=== PATIENT | male | born 1980 | race Caucasian/White ===

== ENCOUNTER 2021-10-12 05:23 | Inpatient (IN) | payer MEDICARE, MEDICAID ==
[~2021-10-12] VITALS: Ht 188 cm; Wt 109.6 kg
[~2021-10-12 05:23] MED LIST: NORPTMEDS CO; TRAZ100T3
[2021-10-12] MEDS ORDERED: DexAMETHasone SOD PHOS 10MG/1ML VIAL INJ IV ONE (05:45)
[2021-10-12] MEDS ORDERED: ACETAMINOPHEN 500 MG TAB PO ONE (05:45)
[2021-10-12 06:42] LABS: Basophils # (auto) 0 10 ^3/uL (0-0.2); Eosinophils # (auto) 0 10 ^3/uL (0-0.8); Lymphocytes # (auto) 0.6 10 ^3/uL (0.4-5.4)
[2021-10-12 06:47] LABS: Basophils % (auto) 0.2 % (0.0-2.0); Eosinophils % (auto) 0.2 % (0.0-7.0); Hematocrit 38.3 % (41.0-53.0); Hemoglobin 12.6 g/dL (13.5-17.5); Lymphocytes % (auto) 4.3 % (10.0-50.0); Mean Corpuscular Hemoglobin 20.8 pg (28.0-32.0); Mean Corpuscular Hgb Conc. 32.8 g/dL (32.0-36.0); Mean Corpuscular Volume 63.5 fL (80.0-100.0); Monocytes # (auto) 0.5 10 ^3/uL (0-1.3); Monocytes % (auto) 3.2 % (0.0-12.0); Neutrophils # (auto) 13.3 10 ^3/uL (1.6-8.6); Neutrophils % (auto) 92.1 % (37.0-80.0); Red Blood Cells 6.03 10^6/uL (4.5-5.90); Red Cell Distribution Width 15.4 % (11.8-14.3); White Blood Cell 14.4 10^3/uL (4.4-10.8)
[2021-10-12] MEDS ORDERED: cefTRIAXone 1GM/50ML D5W 50 ML IV ONE (07:00)
[2021-10-12] MEDS ORDERED: AZITHROMYCIN 500MG/ 250ML 250 ML IV ONE (07:00)
[2021-10-12] MEDS ORDERED: ZINC SULFATE 220mg CAP or TAB PO ONE (07:00)
[2021-10-12] MEDS ORDERED: ASCORBIC ACID 500 MG TAB PO ONE (07:00)
[2021-10-12] MEDS ORDERED: FUROSEMIDE 40 MG/4 ML VIAL IV ONE ×2 (07:00→09:00)
[2021-10-12] MEDS ORDERED: CHOLECALCIFEROL (VITD3) 2,000 UNIT CAP/TAB PO ONE (07:00)
[2021-10-12 07:01] LABS: INR 1.21 (0.9-1.15); Partial Thromboplastin Time 28.6 sec (23.6-33.0)
[2021-10-12 07:04] LABS: Albumin 1.8 g/dL (3.4-5.0); Potassium 3.9 mmol/L (3.5-5.1)
[2021-10-12 07:07] LABS: Bilirubin, Total 0.7 mg/dL (0.2-1.0); Total Protein 7.4 g/dL (6.4-8.2)
[2021-10-12 08:14] LABS: Lactic Acid w/Reflex 2.3 mmol/L (0.4-2.0)
[2021-10-12] MEDS ORDERED: MORPHINE SULFATE INJECTION 2 MG/ML SYRG IV PRN ×3 (14:15→15:45)
[2021-10-12] MEDS ORDERED: NITROGLYCERIN 0.4 MG SL TAB SL PRN ×2 (14:15→15:45)
[2021-10-12] MEDS ORDERED: ONDANSETRON HCL 4 MG/2 ML VIAL IV PRN (15:45)
[2021-10-12] MEDS ORDERED: FAMOTIDINE (10MG/ML) 2ML VL IV ONE (15:45)
[2021-10-12] MEDS ORDERED: DOCUSATE SOD 100 MG CAP PO PRN (15:45)
[2021-10-12] MEDS ORDERED: ALBUMIN 25% 100 ML IV ONE (15:45)
[2021-10-12] MEDS ORDERED: REMDESIVIR PER PHARMACY 0 ML IV SCH (15:45)
[2021-10-12] MEDS ORDERED: ALUM & MAG HYDROX-SIMETH LIQ(MAALOX) 30 ML PO PRN (15:45)
[2021-10-12] MEDS ORDERED: HYDROcodone-ACET 5/325MG TAB PO PRN (15:45)
[2021-10-12] MEDS ORDERED: ALBUMIN 25% 100 ML IV SCH ×2 (15:45→17:00)
[2021-10-12] MEDS ORDERED: LORazepam 0.5 MG TAB PO PRN (15:45)
[2021-10-12] MEDS ORDERED: CEFEPIME 2 GM in SODIUM CHL 0.9% 50 ML IV ONE (16:00)
[2021-10-12] MEDS ORDERED: AZIT250T9 PO (16:02)
[2021-10-12] MEDS ORDERED: ESCI-28 PO (16:02)
[2021-10-12] MEDS ORDERED: ARIP5TAB36 PO (16:02)
[2021-10-12] MEDS ORDERED: BENZ1TAB2 PO (16:02)
[2021-10-12 16:37] VITALS: BP 94/51
[2021-10-12 17:08] LABS: Basophils # (auto) 0 10 ^3/uL (0-0.2); Basophils % (auto) 0.3 % (0.0-2.0); Eosinophils # (auto) 0 10 ^3/uL (0-0.8); Hematocrit 38.9 % (41.0-53.0); Hemoglobin 12.6 g/dL (13.5-17.5); Lymphocytes # (auto) 0.7 10 ^3/uL (0.4-5.4); Lymphocytes % (auto) 5.7 % (10.0-50.0); Mean Corpuscular Hemoglobin 20.4 pg (28.0-32.0); Mean Corpuscular Hgb Conc. 32.4 g/dL (32.0-36.0); Monocytes # (auto) 0.4 10 ^3/uL (0-1.3); Monocytes % (auto) 3.2 % (0.0-12.0); Neutrophils # (auto) 11.9 10 ^3/uL (1.6-8.6); Neutrophils % (auto) 90.8 % (37.0-80.0); Red Blood Cells 6.18 10^6/uL (4.5-5.90); Red Cell Distribution Width 15.6 % (11.8-14.3); White Blood Cell 13.1 10^3/uL (4.4-10.8)
[2021-10-12] MEDS ORDERED: ALBUMIN 25% 0 ML IV ONE (17:13)
[2021-10-12 17:24] LABS: Albumin 1.8 g/dL (3.4-5.0); Anion Gap 8 (5-15); Blood Urea Nitrogen 36 mg/dL (7-18); Calcium 8.1 mg/dL (8.5-10.1); Carbon Dioxide 23 mmol/L (21-32); Chloride 105 mmol/L (98-107); Glucose 153 mg/dL (74-106); Magnesium 2.8 mg/dL (1.6-2.6); Sodium 136 mmol/L (136-145)
[2021-10-12 17:28] LABS: Lactic Acid w/Reflex 2.3 mmol/L (0.4-2.0)
[2021-10-12 17:32] LABS: Alanine Aminotransferase 59 U/L (16-61); Alkaline Phosphatase 96 U/L (45-117); Aspartate Aminotransferase 90 U/L (15-37); BUN/Creatinine Ratio 26.5; Bilirubin, Total 0.6 mg/dL (0.2-1.0); Cholesterol 67 mg/dL (< 200); GFR African American 74 mL/min; GFR Non-African American 61 mL/min; HDL Cholesterol 20 mg/dL (40-59); LDL Cholesterol 21 mg/dL (< 100); Total Protein 7.8 g/dL (6.4-8.2); Triglycerides 130 mg/dL (< 150)
[2021-10-12 17:41] LABS: Thyroid Stimulating Hormone 0.51 uIU/mL (0.358-3.74)
[2021-10-12 18:02] LABS: CRP High Sensitivity > 19.0 mg/dL (< 0.3)
[2021-10-12] MEDS ORDERED: ENOXAPARIN SOD 100 MG/1 ML SYRINGE SC ONE (18:15)
[2021-10-12] MEDS: FUROSEMIDE 20 MG/2 ML VIAL IV SCH (18:35)
[2021-10-12] MEDS ORDERED: REMDESIVIR 200 MG in NS 210ml LOADING DOSE ADULT IV ONE (20:00)
[2021-10-12 21:00] VITALS: BP 102/61
[2021-10-12] MEDS ORDERED: ENOXAPARIN SOD 40 MG/0.4 ML SYRINGE SC SCH (22:00)
[2021-10-12] MEDS ORDERED: ATORVASTATIN 20 MG TAB PO SCH (22:00)
[2021-10-12] MEDS: POTASSIUM CHL 20 Meq TABLET PO SCH (23:15)
[2021-10-12] MEDS: FAMOTIDINE (10MG/ML) 2ML VL IV SCH (23:15)
[2021-10-13] MEDS ORDERED: ALBUMIN 5% 250 ML IV ONE (00:45)
[2021-10-13 04:41] VITALS: BP 105/63
[2021-10-13] MEDS: BUDESONIDE (INHALATION) 180 MCG IH IN SCH ×3 (05:54→18:28)
[2021-10-13] MEDS: ALBUTEROL SULF HFA 90MCG INH 200DOSE IN PRN (05:55)
[2021-10-13] MEDS: FUROSEMIDE 20 MG/2 ML VIAL IV SCH ×2 (06:25→17:20)
[2021-10-13 07:43] LABS: Basophils # (auto) 0 10 ^3/uL (0-0.2); Eosinophils # (auto) 0 10 ^3/uL (0-0.8); Monocytes # (auto) 0.4 10 ^3/uL (0-1.3)
[2021-10-13 07:44] LABS: Hematocrit 36.7 % (41.0-53.0); Hemoglobin 11.8 g/dL (13.5-17.5); Lymphocytes # (auto) 0.6 10 ^3/uL (0.4-5.4); Lymphocytes % (auto) 4.1 % (10.0-50.0); Mean Corpuscular Hgb Conc. 32.2 g/dL (32.0-36.0); Monocytes % (auto) 2.5 % (0.0-12.0); Neutrophils # (auto) 14.8 10 ^3/uL (1.6-8.6); Neutrophils % (auto) 93.4 % (37.0-80.0); Red Blood Cells 5.79 10^6/uL (4.5-5.90); Red Cell Distribution Width 15.5 % (11.8-14.3); White Blood Cell 15.8 10^3/uL (4.4-10.8)
[2021-10-13 07:45] LABS: INR 1.12 (0.9-1.15); Partial Thromboplastin Time 28.5 sec (23.6-33.0)
[2021-10-13 07:47] LABS: Albumin 1.9 g/dL (3.4-5.0); Calcium 7.9 mg/dL (8.5-10.1); Magnesium 3.5 mg/dL (1.6-2.6); Potassium 3.9 mmol/L (3.5-5.1); Uric Acid 7.1 mg/dL (3.5-7.2)
[2021-10-13 07:52] LABS: BUN/Creatinine Ratio 35.2; Bilirubin, Total 0.7 mg/dL (0.2-1.0); Phosphorus 2.8 mg/dL (2.5-4.90); Total Protein 7.1 g/dL (6.4-8.2)
[2021-10-13 08:02] LABS: Mean Corpuscular Hemoglobin 20.4 pg (28.0-32.0); Mean Corpuscular Volume 63.4 fL (80.0-100.0)
[2021-10-13 09:00] VITALS: BP 96/54
[2021-10-13] MEDS: CEFEPIME 2 GM in SODIUM CHL 0.9% 50 ML IV SCH ×4 (09:00→17:19)
[2021-10-13] MEDS: FAMOTIDINE (10MG/ML) 2ML VL IV SCH ×2 (09:29→21:17)
[2021-10-13] MEDS: ASPirin 81 mg TAB PO SCH (09:44)
[2021-10-13] MEDS: POTASSIUM CHL 20 Meq TABLET PO SCH ×2 (09:44→21:17)
[2021-10-13] MEDS: IVERMECTIN 3 MG TAB PO SCH (09:45)
[2021-10-13] MEDS: ENOXAPARIN SOD 120 MG/0.8 ML SYRINGE SC SCH ×2 (09:45→21:18)
[2021-10-13] MEDS: ASCORBIC ACID 1,000 MG TAB PO SCH (09:45)
[2021-10-13] MEDS: CHOLECALCIFEROL (VITD3) 2,000 UNIT CAP/TAB PO SCH (09:45)
[2021-10-13] MEDS: ZINC SULFATE 220mg CAP or TAB PO SCH (09:46)
[2021-10-13] MEDS: DexAMETHasone SOD PHOS 10MG/1ML VIAL INJ IV SCH (09:47)
[2021-10-13 13:00] VITALS: BP 106/53
[2021-10-13] MEDS: REMDESIVIR 100mg 100 MG in SODIUM CHL 0.9% 230 ML IV SCH (14:24)
[2021-10-13 17:00] VITALS: BP 93/55
[2021-10-13 19:15] LABS: Urine Bacteria FEW /hpf (None Seen); Urine Blood Negative /uL (Negative); Urine Specific Gravity 1.036 (1.001-1.035); Urine WBC 1 /hpf (0 - 3)
[2021-10-13 19:24] LABS: Amphetamine Screen, Urine NEGATIVE (NEGATIVE); Barbiturate Scree,Urine NEGATIVE (NEGATIVE); Benzodiazephine Screen, Urine NEGATIVE (NEGATIVE); Cannabinoid Screen, Urine NEGATIVE (NEGATIVE); Cocaine Screen, Urine NEGATIVE (NEGATIVE); Opiate Scree,Urine NEGATIVE (NEGATIVE); Phencyclidine Screen, Urine NEGATIVE (NEGATIVE)
[2021-10-13] MEDS ORDERED: TOCILIZUMAB 400 MG in SODIUM CHL 0.9% 80 ML IV SCH (22:00)
[2021-10-14] VITALS (27 sets, daily range): BP systolic 98–134; BP diastolic 56–91
[2021-10-14] MEDS: CEFEPIME 2 GM in SODIUM CHL 0.9% 50 ML IV SCH ×3 (00:16→16:00)
[2021-10-14] MEDS: LORazepam 2MG/ML-1ML VIAL IV PRN (02:22)
[2021-10-14] MEDS: FUROSEMIDE 20 MG/2 ML VIAL IV SCH ×2 (05:23→18:00)
[2021-10-14 06:23] LABS: Potassium 4.9 mmol/L (3.5-5.1)
[2021-10-14 06:34] LABS: Albumin 1.9 g/dL (3.4-5.0); BUN/Creatinine Ratio 38.9; Bilirubin, Total 0.8 mg/dL (0.2-1.0); Total Protein 6.6 g/dL (6.4-8.2)
[2021-10-14] MEDS: ALBUTEROL SULF HFA 90MCG INH 200DOSE IN PRN (07:17)
[2021-10-14] MEDS: BUDESONIDE (INHALATION) 180 MCG IH IN SCH (07:18)
[2021-10-14] MEDS: FOLIC ACID 1 MG in D5W 5% 50 ML INJ SCH (09:03)
[2021-10-14] MEDS: DexAMETHasone SOD PHOS 10MG/1ML VIAL INJ IV SCH (09:04)
[2021-10-14] MEDS: FAMOTIDINE (10MG/ML) 2ML VL IV SCH ×2 (09:04→22:00)
[2021-10-14] MEDS: THIAMINE 100mg/ml INJ (200mg/2ml VIAL) IV SCH (09:04)
[2021-10-14] MEDS: ASPirin 81 mg TAB PO SCH (09:05)
[2021-10-14] MEDS: ZINC SULFATE 220mg CAP or TAB PO SCH (09:05)
[2021-10-14] MEDS: IVERMECTIN 3 MG TAB PO SCH (09:05)
[2021-10-14] MEDS: CITALOPRAM HYDROBR 20 MG TAB PO SCH (09:05)
[2021-10-14] MEDS: POTASSIUM CHL 20 Meq TABLET PO SCH ×2 (09:05→22:00)
[2021-10-14] MEDS: ENOXAPARIN SOD 120 MG/0.8 ML SYRINGE SC SCH ×2 (09:06→22:00)
[2021-10-14] MEDS: CHOLECALCIFEROL (VITD3) 2,000 UNIT CAP/TAB PO SCH (09:06)
[2021-10-14] MEDS: ASCORBIC ACID 1,000 MG TAB PO SCH (09:06)
[2021-10-14] MEDS: Aripiprazole 5 MG PO SCH (10:00)
[2021-10-14] MEDS ORDERED: ETOMIDATE (2MG/ML) 20ML VIAL IV ONE (14:07)
[2021-10-14] MEDS ORDERED: SUCCINYLCHOLINE CHLORIDE 20 MG/ML 10ML VIAL IV ONE (14:07)
[2021-10-14] MEDS ORDERED: ROCURONIUM 10MG/ML 10ML VIAL IV ONE (14:07)
[2021-10-14] MEDS: NOREPINEPHRINE 8 MG/250ML KIT 250 ML IV SCH (14:15)
[2021-10-14] MEDS: PROPOFOL 100 ML IV SCH (14:15)
[2021-10-14] MEDS: MIDAZOLAM DRIP 50 mg/50mL 50 ML IV SCH (14:15)
[2021-10-14] MEDS: fentaNYL Drip 2500mCg/250mlNS 250 ML IV SCH ×2 (14:15→22:40)
[2021-10-14] MEDS ORDERED: PROPOFOL 100 ML IV ONE (14:23)
[2021-10-14] MEDS ORDERED: NOREPINEPHRINE 8 MG/250ML KIT 250 ML IV ONE (14:23)
[2021-10-14] MEDS ORDERED: MIDAZOLAM DRIP 50 mg/50mL 50 ML IV ONE (14:24)
[2021-10-14] MEDS ORDERED: fentaNYL Drip 2500mCg/250mlNS 250 ML IV ONE (14:24)
[2021-10-14] MEDS: REMDESIVIR 100mg 100 MG in SODIUM CHL 0.9% 230 ML IV SCH (15:00)
[2021-10-14] MEDS: ROCURONIUM BROMIDE 1,000 MG in D5W 5% 150 ML IV SCH (16:45)
[2021-10-14] MEDS ORDERED: LIDOCAINE 1% (LOCAL ANESTH.) PF 5ml SDV ID ONE (17:30)
[2021-10-14] MEDS ORDERED: NOREPINEPHRINE 8 MG/250ML KIT 250 ML IV SCH (17:45)
[2021-10-14] MEDS ORDERED: DEXTROSE (50%) 50ML SYRG IV PRN (18:15)
[2021-10-14] MEDS: InsuLIN REG 1unit/0.01ml Soln (100units/ml) SC SCH ×2 (19:06→21:50)
[2021-10-14] MEDS: ACCU-CHEK COMFORT CURVE STRIP VI SCH (21:50)
[2021-10-14] MEDS: SODIUM CHLOR 0.9% PF (SALINE LOCK) 10ML VIAL/SYR IV SCH (22:00)
[2021-10-14] MEDS ORDERED: ALBUTEROL SULF 2.5 MG/0.5ML(0.5%) NEB SOLN NEB PRN (22:15)
[2021-10-15] VITALS (104 sets, daily range): BP systolic 95–112; BP diastolic 49–66
[2021-10-15] MEDS: FUROSEMIDE 20 MG/2 ML VIAL IV SCH ×2 (04:54→17:16)
[2021-10-15 05:21] LABS: Albumin 1.9 g/dL (3.4-5.0); Calcium 7.7 mg/dL (8.5-10.1)
[2021-10-15 05:30] LABS: Bilirubin, Total 0.6 mg/dL (0.2-1.0); Total Protein 6.9 g/dL (6.4-8.2)
[2021-10-15 05:50] LABS: Potassium 6.1 mmol/L (3.5-5.1)
[2021-10-15] MEDS: ACCU-CHEK COMFORT CURVE STRIP VI SCH ×4 (06:07→22:00)
[2021-10-15] MEDS: CEFEPIME 2 GM in SODIUM CHL 0.9% 50 ML IV SCH ×5 (07:56→23:51)
[2021-10-15] MEDS: Aripiprazole 5 MG PO SCH (10:00)
[2021-10-15] MEDS: POTASSIUM CHL 20 Meq TABLET PO SCH (10:00)
[2021-10-15] MEDS: ASPirin 81 mg TAB PO SCH (10:20)
[2021-10-15] MEDS: CHOLECALCIFEROL (VITD3) 2,000 UNIT CAP/TAB PO SCH (10:20)
[2021-10-15] MEDS: ASCORBIC ACID 1,000 MG TAB PO SCH (10:20)
[2021-10-15] MEDS: THIAMINE 100mg/ml INJ (200mg/2ml VIAL) IV SCH (10:21)
[2021-10-15] MEDS: FAMOTIDINE (10MG/ML) 2ML VL IV SCH ×2 (10:21→21:45)
[2021-10-15] MEDS: DexAMETHasone SOD PHOS 10MG/1ML VIAL INJ IV SCH (10:21)
[2021-10-15] MEDS: ZINC SULFATE 220mg CAP or TAB PO SCH (10:21)
[2021-10-15] MEDS: IVERMECTIN 3 MG TAB PO SCH (10:21)
[2021-10-15] MEDS: CITALOPRAM HYDROBR 20 MG TAB PO SCH (10:21)
[2021-10-15] MEDS: ENOXAPARIN SOD 120 MG/0.8 ML SYRINGE SC SCH ×2 (10:22→21:45)
[2021-10-15] MEDS: SODIUM CHLOR 0.9% PF (SALINE LOCK) 10ML VIAL/SYR IV SCH ×2 (10:23→21:45)
[2021-10-15] MEDS: PROPOFOL 100 ML IV SCH ×4 (10:25→18:49)
[2021-10-15] MEDS: MIDAZOLAM DRIP 50 mg/50mL 50 ML IV SCH ×2 (10:25→17:15)
[2021-10-15 11:02] LABS: Anion Gap 7 (5-15); Carbon Dioxide 24 mmol/L (21-32); Chloride 113 mmol/L (98-107); Potassium 5.4 mmol/L (3.5-5.1); Sodium 144 mmol/L (136-145)
[2021-10-15 11:03] LABS: Alanine Aminotransferase 75 U/L (16-61); Alkaline Phosphatase 96 U/L (45-117); Aspartate Aminotransferase 48 U/L (15-37); BUN/Creatinine Ratio 41.7; Bilirubin, Total 0.5 mg/dL (0.2-1.0); Blood Urea Nitrogen 43 mg/dL (7-18); Calcium 7.8 mg/dL (8.5-10.1); GFR African American 102 mL/min; GFR Non-African American 84 mL/min; Glucose 159 mg/dL (74-106); Total Protein 6.9 g/dL (6.4-8.2)
[2021-10-15] MEDS: ROCURONIUM BROMIDE 1,000 MG in D5W 5% 150 ML IV SCH (11:46)
[2021-10-15] MEDS ORDERED: SODIUM ZIRCONIUM CYCL 10 GM PAK GT ONE (12:15)
[2021-10-15] MEDS: FOLIC ACID 1 MG in D5W 5% 50 ML INJ SCH (12:40)
[2021-10-15] MEDS: InsuLIN REG 1unit/0.01ml Soln (100units/ml) SC SCH ×3 (12:42→21:47)
[2021-10-15] MEDS: NOREPINEPHRINE 8 MG/250ML KIT 250 ML IV SCH (14:15)
[2021-10-15] MEDS: BUDESONIDE (INHALATION) 0.5 MG/2 ML NEB NEB SCH ×2 (15:13→19:27)
[2021-10-15] MEDS: REMDESIVIR 100mg 100 MG in SODIUM CHL 0.9% 230 ML IV SCH (16:03)
[2021-10-15] MEDS: fentaNYL Drip 2500mCg/250mlNS 250 ML IV SCH (16:16)
[2021-10-15] MEDS: ALBUTEROL SULF 2.5 MG/0.5ML(0.5%) NEB SOLN NEB SCH (19:27)
[2021-10-15] MEDS: IPRATROPIUM BROM 0.5 MG/2.5ML INH SOL NEB SCH (19:27)
[2021-10-15] MEDS ORDERED: Nepro With Carb Steady 1 Liter Bottle GT SCH (20:00)
[2021-10-16] VITALS (95 sets, daily range): BP systolic 98–127; BP diastolic 50–73
[2021-10-16] MEDS: IPRATROPIUM BROM 0.5 MG/2.5ML INH SOL NEB SCH ×4 (00:38→18:21)
[2021-10-16] MEDS: ALBUTEROL SULF 2.5 MG/0.5ML(0.5%) NEB SOLN NEB SCH ×4 (00:38→18:21)
[2021-10-16] MEDS: FUROSEMIDE 20 MG/2 ML VIAL IV SCH ×2 (05:33→18:09)
[2021-10-16 05:57] LABS: Basophils # (auto) 0 10 ^3/uL (0-0.2); Basophils % (auto) 0.1 % (0.0-2.0); Eosinophils # (auto) 0 10 ^3/uL (0-0.8); Hematocrit 34.7 % (41.0-53.0); Lymphocytes # (auto) 0.3 10 ^3/uL (0.4-5.4); Lymphocytes % (auto) 2.2 % (10.0-50.0); Mean Corpuscular Hemoglobin 20.8 pg (28.0-32.0); Mean Corpuscular Hgb Conc. 31.7 g/dL (32.0-36.0); Mean Corpuscular Volume 65.6 fL (80.0-100.0); Monocytes # (auto) 0.5 10 ^3/uL (0-1.3); Monocytes % (auto) 3.6 % (0.0-12.0); Neutrophils # (auto) 12.9 10 ^3/uL (1.6-8.6); Neutrophils % (auto) 94.1 % (37.0-80.0); Nucleated Red Blood Cells % 0.1 %; Red Blood Cells 5.28 10^6/uL (4.5-5.90); Red Cell Distribution Width 16.2 % (11.8-14.3); White Blood Cell 13.7 10^3/uL (4.4-10.8)
[2021-10-16] MEDS: BUDESONIDE (INHALATION) 0.5 MG/2 ML NEB NEB SCH ×2 (06:15→18:21)
[2021-10-16 06:37] LABS: Calcium 7.7 mg/dL (8.5-10.1); Potassium 5.4 mmol/L (3.5-5.1)
[2021-10-16 06:43] LABS: Albumin 1.9 g/dL (3.4-5.0); BUN/Creatinine Ratio 44.2; Bilirubin, Total 0.4 mg/dL (0.2-1.0); Total Protein 6.5 g/dL (6.4-8.2)
[2021-10-16] MEDS: ROCURONIUM BROMIDE 1,000 MG in D5W 5% 150 ML IV SCH (06:47)
[2021-10-16] MEDS: InsuLIN REG 1unit/0.01ml Soln (100units/ml) SC SCH ×4 (06:50→22:00)
[2021-10-16] MEDS: ACCU-CHEK COMFORT CURVE STRIP VI SCH ×4 (06:51→22:00)
[2021-10-16] MEDS: CEFEPIME 2 GM in SODIUM CHL 0.9% 50 ML IV SCH ×2 (08:00→16:00)
[2021-10-16] MEDS: Aripiprazole 5 MG PO SCH (10:00)
[2021-10-16] MEDS: ASPirin 81 mg TAB PO SCH (10:00)
[2021-10-16] MEDS: THIAMINE 100mg/ml INJ (200mg/2ml VIAL) IV SCH (10:06)
[2021-10-16] MEDS: SODIUM CHLOR 0.9% PF (SALINE LOCK) 10ML VIAL/SYR IV SCH ×2 (10:10→22:00)
[2021-10-16] MEDS: FAMOTIDINE (10MG/ML) 2ML VL IV SCH ×2 (10:10→22:00)
[2021-10-16] MEDS: DexAMETHasone SOD PHOS 10MG/1ML VIAL INJ IV SCH (10:10)
[2021-10-16] MEDS: IVERMECTIN 3 MG TAB PO SCH (10:11)
[2021-10-16] MEDS: CHOLECALCIFEROL (VITD3) 2,000 UNIT CAP/TAB PO SCH (10:11)
[2021-10-16] MEDS: ZINC SULFATE 220mg CAP or TAB PO SCH (10:11)
[2021-10-16] MEDS: ENOXAPARIN SOD 120 MG/0.8 ML SYRINGE SC SCH ×2 (10:11→22:00)
[2021-10-16] MEDS: ASCORBIC ACID 1,000 MG TAB PO SCH (10:11)
[2021-10-16] MEDS ORDERED: DEXTROSE (50%) 50ML SYRG IV ONE (10:15)
[2021-10-16] MEDS ORDERED: SODIUM BICARBONATE 8.4% INJ 50ML SYRINGE IV ONE (10:15)
[2021-10-16] MEDS ORDERED: InsuLIN REG 1unit/0.01ml Soln (100units/ml) IV ONE (10:15)
[2021-10-16] MEDS ORDERED: SODIUM ZIRCONIUM CYCL 10 GM PAK GT ONE (12:00)
[2021-10-16] MEDS: FREE WATER GT SCH ×2 (12:00→17:45)
[2021-10-16] MEDS: NOREPINEPHRINE 8 MG/250ML KIT 250 ML IV SCH (14:15)
[2021-10-16] MEDS: REMDESIVIR 100mg 100 MG in SODIUM CHL 0.9% 230 ML IV SCH (15:00)
[2021-10-16] MEDS: PROPOFOL 100 ML IV SCH (23:00)
[2021-10-17] VITALS (106 sets, daily range): BP systolic 104–129; BP diastolic 56–80
[2021-10-17] MEDS: IPRATROPIUM BROM 0.5 MG/2.5ML INH SOL NEB SCH ×4 (00:25→18:37)
[2021-10-17] MEDS: ALBUTEROL SULF 2.5 MG/0.5ML(0.5%) NEB SOLN NEB SCH ×4 (00:25→18:37)
[2021-10-17] MEDS: ROCURONIUM BROMIDE 1,000 MG in D5W 5% 150 ML IV SCH ×2 (01:48→20:49)
[2021-10-17] MEDS: fentaNYL Drip 2500mCg/250mlNS 250 ML IV SCH ×2 (03:30→16:13)
[2021-10-17] MEDS: FUROSEMIDE 20 MG/2 ML VIAL IV SCH ×2 (06:00→18:00)
[2021-10-17] MEDS: FREE WATER GT SCH ×5 (06:00→23:40)
[2021-10-17 06:06] LABS: Basophils # (auto) 0 10 ^3/uL (0-0.2); Basophils % (auto) 0.1 % (0.0-2.0); Eosinophils # (auto) 0 10 ^3/uL (0-0.8); Eosinophils % (auto) 0.1 % (0.0-7.0); Monocytes # (auto) 0.6 10 ^3/uL (0-1.3); Neutrophils # (auto) 11.3 10 ^3/uL (1.6-8.6); Nucleated Red Blood Cells % 0.2 %; White Blood Cell 12.3 10^3/uL (4.4-10.8)
[2021-10-17] MEDS: BUDESONIDE (INHALATION) 0.5 MG/2 ML NEB NEB SCH ×2 (06:18→18:37)
[2021-10-17 06:19] LABS: Potassium 4.8 mmol/L (3.5-5.1)
[2021-10-17 06:24] LABS: BUN/Creatinine Ratio 63.2; Calcium 7.2 mg/dL (8.5-10.1); Hematocrit 32.4 % (41.0-53.0); Hemoglobin 10.6 g/dL (13.5-17.5); Lymphocytes # (auto) 0.4 10 ^3/uL (0.4-5.4); Lymphocytes % (auto) 2.9 % (10.0-50.0); Mean Corpuscular Hemoglobin 21.4 pg (28.0-32.0); Mean Corpuscular Hgb Conc. 32.8 g/dL (32.0-36.0); Mean Corpuscular Volume 65.4 fL (80.0-100.0); Monocytes % (auto) 5.1 % (0.0-12.0); Neutrophils % (auto) 91.8 % (37.0-80.0); Red Blood Cells 4.96 10^6/uL (4.5-5.90)
[2021-10-17] MEDS: InsuLIN REG 1unit/0.01ml Soln (100units/ml) SC SCH ×4 (06:59→22:00)
[2021-10-17] MEDS: ACCU-CHEK COMFORT CURVE STRIP VI SCH ×4 (07:00→22:00)
[2021-10-17] MEDS: CEFEPIME 2 GM in SODIUM CHL 0.9% 50 ML IV SCH ×5 (08:21→23:40)
[2021-10-17] MEDS: Aripiprazole 5 MG PO SCH (10:00)
[2021-10-17] MEDS: THIAMINE 100mg/ml INJ (200mg/2ml VIAL) IV SCH (11:47)
[2021-10-17] MEDS: FAMOTIDINE (10MG/ML) 2ML VL IV SCH ×2 (11:47→21:32)
[2021-10-17] MEDS: DexAMETHasone SOD PHOS 10MG/1ML VIAL INJ IV SCH (11:47)
[2021-10-17] MEDS: SODIUM CHLOR 0.9% PF (SALINE LOCK) 10ML VIAL/SYR IV SCH ×2 (11:48→21:32)
[2021-10-17] MEDS: ZINC SULFATE 220mg CAP or TAB PO SCH (11:51)
[2021-10-17] MEDS: ENOXAPARIN SOD 120 MG/0.8 ML SYRINGE SC SCH ×2 (11:51→22:00)
[2021-10-17] MEDS: ASCORBIC ACID 1,000 MG TAB PO SCH (11:51)
[2021-10-17] MEDS: CHOLECALCIFEROL (VITD3) 2,000 UNIT CAP/TAB PO SCH (11:51)
[2021-10-17] MEDS: IVERMECTIN 3 MG TAB PO SCH (11:51)
[2021-10-17] MEDS: PROPOFOL 100 ML IV SCH ×2 (12:20→21:00)
[2021-10-17] MEDS: MIDAZOLAM DRIP 50 mg/50mL 50 ML IV SCH (12:20)
[2021-10-17] MEDS: NOREPINEPHRINE 8 MG/250ML KIT 250 ML IV SCH (14:15)
[2021-10-18] VITALS (109 sets, daily range): BP systolic 98–134; BP diastolic 58–82
[2021-10-18] MEDS: IPRATROPIUM BROM 0.5 MG/2.5ML INH SOL NEB SCH ×4 (00:26→18:48)
[2021-10-18] MEDS: ALBUTEROL SULF 2.5 MG/0.5ML(0.5%) NEB SOLN NEB SCH ×4 (00:27→18:48)
[2021-10-18 05:09] LABS: Hematocrit 34.2 % (41.0-53.0); Hemoglobin 11.4 g/dL (13.5-17.5); Mean Corpuscular Hemoglobin 21.7 pg (28.0-32.0); Mean Corpuscular Hgb Conc. 33.3 g/dL (32.0-36.0); Red Blood Cells 5.25 10^6/uL (4.5-5.90); Red Cell Distribution Width 15.5 % (11.8-14.3); White Blood Cell 12.7 10^3/uL (4.4-10.8)
[2021-10-18 05:23] LABS: Basophils % (manual) 0 (0.0-2.0); Blast Cells 0; Eosinophils % (manual) 0 (0-7); Metamyelocytes % 0; Promyelocytes % 0; Reactive Lymphocytes 0
[2021-10-18 05:27] LABS: Calcium 6.8 mg/dL (8.5-10.1); Potassium 3.8 mmol/L (3.5-5.1)
[2021-10-18 05:58] LABS: BUN/Creatinine Ratio 55.1
[2021-10-18] MEDS: FREE WATER GT SCH ×2 (06:00→12:12)
[2021-10-18] MEDS: FUROSEMIDE 20 MG/2 ML VIAL IV SCH (06:00)
[2021-10-18] MEDS: BUDESONIDE (INHALATION) 0.5 MG/2 ML NEB NEB SCH ×2 (06:14→18:48)
[2021-10-18 06:44] LABS: Band Neutrophils % (manual) 4; Lymphocytes % (manual) 6 (10.0-50.0); Monocytes % (manual) 3 (0-12); Myelocytes % 2
[2021-10-18] MEDS: ACCU-CHEK COMFORT CURVE STRIP VI SCH ×4 (07:00→22:00)
[2021-10-18] MEDS: InsuLIN REG 1unit/0.01ml Soln (100units/ml) SC SCH ×4 (07:00→22:00)
[2021-10-18] MEDS: CEFEPIME 2 GM in SODIUM CHL 0.9% 50 ML IV SCH ×3 (08:12→23:52)
[2021-10-18] MEDS: Aripiprazole 5 MG PO SCH (10:00)
[2021-10-18] MEDS: ENOXAPARIN SOD 120 MG/0.8 ML SYRINGE SC SCH (10:13)
[2021-10-18] MEDS: fentaNYL Drip 2500mCg/250mlNS 250 ML IV SCH (10:13)
[2021-10-18] MEDS: THIAMINE 100mg/ml INJ (200mg/2ml VIAL) IV SCH (10:14)
[2021-10-18] MEDS: FAMOTIDINE (10MG/ML) 2ML VL IV SCH ×2 (10:14→22:00)
[2021-10-18] MEDS: ZINC SULFATE 220mg CAP or TAB PO SCH (10:14)
[2021-10-18] MEDS: SODIUM CHLOR 0.9% PF (SALINE LOCK) 10ML VIAL/SYR IV SCH ×2 (10:14→22:00)
[2021-10-18] MEDS: DexAMETHasone SOD PHOS 10MG/1ML VIAL INJ IV SCH (10:14)
[2021-10-18] MEDS: ASCORBIC ACID 1,000 MG TAB PO SCH (10:15)
[2021-10-18] MEDS: CHOLECALCIFEROL (VITD3) 2,000 UNIT CAP/TAB PO SCH (10:15)
[2021-10-18] MEDS: IVERMECTIN 3 MG TAB PO SCH (10:16)
[2021-10-18] MEDS: LORazepam 2MG/ML-1ML VIAL IV PRN (11:01)
[2021-10-18 13:05] LABS: Albumin 1.8 g/dL (3.4-5.0); Phosphorus 2.1 mg/dL (2.5-4.90)
[2021-10-18] MEDS: NOREPINEPHRINE 8 MG/250ML KIT 250 ML IV SCH (14:08)
[2021-10-18] MEDS: MIDAZOLAM DRIP 50 mg/50mL 50 ML IV SCH (14:09)
[2021-10-18] MEDS: ROCURONIUM BROMIDE 1,000 MG in D5W 5% 150 ML IV SCH (15:38)
[2021-10-18] MEDS ORDERED: POTASSIUM PHOSPHATE 44 MEQ in D5W 5% 250 ML IV ONE (16:30)
[2021-10-19] VITALS (71 sets, daily range): BP systolic 100–154; BP diastolic 58–83
[2021-10-19] MEDS: IPRATROPIUM BROM 0.5 MG/2.5ML INH SOL NEB SCH ×3 (05:35→18:57)
[2021-10-19] MEDS: BUDESONIDE (INHALATION) 0.5 MG/2 ML NEB NEB SCH ×2 (05:35→18:57)
[2021-10-19] MEDS: ALBUTEROL SULF 2.5 MG/0.5ML(0.5%) NEB SOLN NEB SCH ×3 (05:35→18:57)
[2021-10-19 05:50] LABS: BUN/Creatinine Ratio 60.9; Calcium 8.4 mg/dL (8.5-10.1); Potassium 4.4 mmol/L (3.5-5.1)
[2021-10-19 05:54] LABS: Basophils # (auto) 0 10 ^3/uL (0-0.2); Basophils % (auto) 0.2 % (0.0-2.0); Eosinophils # (auto) 0.2 10 ^3/uL (0-0.8); Eosinophils % (auto) 1.1 % (0.0-7.0); Hematocrit 38.4 % (41.0-53.0); Hemoglobin 11.8 g/dL (13.5-17.5); Lymphocytes # (auto) 0.8 10 ^3/uL (0.4-5.4); Lymphocytes % (auto) 5.2 % (10.0-50.0); Mean Corpuscular Hgb Conc. 30.8 g/dL (32.0-36.0); Monocytes # (auto) 0.8 10 ^3/uL (0-1.3); Monocytes % (auto) 5.7 % (0.0-12.0); Neutrophils # (auto) 12.7 10 ^3/uL (1.6-8.6); Neutrophils % (auto) 87.8 % (37.0-80.0); Nucleated Red Blood Cells % 0.1 %; Red Blood Cells 5.91 10^6/uL (4.5-5.90); Red Cell Distribution Width 15.4 % (11.8-14.3); White Blood Cell 14.4 10^3/uL (4.4-10.8)
[2021-10-19] MEDS: InsuLIN REG 1unit/0.01ml Soln (100units/ml) SC SCH ×4 (06:33→22:00)
[2021-10-19] MEDS: ACCU-CHEK COMFORT CURVE STRIP VI SCH ×4 (06:33→22:44)
[2021-10-19] MEDS: CEFEPIME 2 GM in SODIUM CHL 0.9% 50 ML IV SCH ×3 (09:08→23:58)
[2021-10-19] MEDS: FUROSEMIDE 20 MG/2 ML VIAL IV SCH (09:43)
[2021-10-19] MEDS: SODIUM CHLOR 0.9% PF (SALINE LOCK) 10ML VIAL/SYR IV SCH ×2 (09:44→22:44)
[2021-10-19] MEDS: ZINC SULFATE 220mg CAP or TAB PO SCH (09:44)
[2021-10-19] MEDS: DexAMETHasone SOD PHOS 10MG/1ML VIAL INJ IV SCH (09:44)
[2021-10-19] MEDS: FAMOTIDINE (10MG/ML) 2ML VL IV SCH ×2 (09:44→22:43)
[2021-10-19] MEDS: CHOLECALCIFEROL (VITD3) 2,000 UNIT CAP/TAB PO SCH (09:45)
[2021-10-19] MEDS: ASCORBIC ACID 1,000 MG TAB PO SCH (09:45)
[2021-10-19] MEDS: Escitalopram Oxalate 10 MG TABLET PO SCH (09:45)
[2021-10-19] MEDS: ARIPIPRAZOLE 5 MG PO SCH (09:45)
[2021-10-19] MEDS: ENOXAPARIN SOD 40 MG/0.4 ML SYRINGE SC SCH ×2 (09:45→22:44)
[2021-10-19] MEDS: ROCURONIUM BROMIDE 1,000 MG in D5W 5% 150 ML IV SCH (09:46)
[2021-10-19] MEDS: BENZTROPINE MESY 0.5 MG TAB PO SCH (09:48)
[2021-10-19 12:55] LABS: % Iron Saturation 23.9 % (20-55)
[2021-10-19] MEDS: MIDAZOLAM DRIP 50 mg/50mL 50 ML IV SCH (14:15)
[2021-10-19] MEDS: PROPOFOL 100 ML IV SCH (14:15)
[2021-10-19] MEDS: fentaNYL Drip 2500mCg/250mlNS 250 ML IV SCH (14:15)
[2021-10-19] MEDS: NOREPINEPHRINE 8 MG/250ML KIT 250 ML IV SCH (14:15)
[2021-10-19] MEDS: ACETAMINOPHEN 500 MG TAB PO PRN (18:10)
[2021-10-20] VITALS (24 sets, daily range): BP systolic 110–128; BP diastolic 72–86
[2021-10-20] MEDS: ACETAMINOPHEN 500 MG TAB PO PRN (00:52)
[2021-10-20] MEDS: ROCURONIUM BROMIDE 1,000 MG in D5W 5% 150 ML IV SCH (05:52)
[2021-10-20] MEDS: ACCU-CHEK COMFORT CURVE STRIP VI SCH ×4 (05:57→22:23)
[2021-10-20] MEDS: InsuLIN REG 1unit/0.01ml Soln (100units/ml) SC SCH ×4 (05:58→22:00)
[2021-10-20 06:38] LABS: Hemoglobin 13.2 g/dL (13.5-17.5)
[2021-10-20] MEDS: ALBUTEROL SULF 2.5 MG/0.5ML(0.5%) NEB SOLN NEB SCH ×4 (06:38→20:13)
[2021-10-20] MEDS: BUDESONIDE (INHALATION) 0.5 MG/2 ML NEB NEB SCH (06:39)
[2021-10-20] MEDS: IPRATROPIUM BROM 0.5 MG/2.5ML INH SOL NEB SCH ×4 (06:39→20:13)
[2021-10-20 06:40] LABS: Basophils # (auto) 0.1 10 ^3/uL (0-0.2); Basophils % (auto) 0.2 % (0.0-2.0); Eosinophils # (auto) 0 10 ^3/uL (0-0.8); Eosinophils % (auto) 0.1 % (0.0-7.0); Hematocrit 42.5 % (41.0-53.0); Lymphocytes # (auto) 0.6 10 ^3/uL (0.4-5.4); Lymphocytes % (auto) 2.5 % (10.0-50.0); Mean Corpuscular Hgb Conc. 31.1 g/dL (32.0-36.0); Monocytes # (auto) 1.1 10 ^3/uL (0-1.3); Monocytes % (auto) 4.7 % (0.0-12.0); Neutrophils % (auto) 92.5 % (37.0-80.0); Red Cell Distribution Width 15.4 % (11.8-14.3); White Blood Cell 22.8 10^3/uL (4.4-10.8)
[2021-10-20 06:55] LABS: BUN/Creatinine Ratio 56.8; Calcium 8.7 mg/dL (8.5-10.1); Potassium 5.3 mmol/L (3.5-5.1)
[2021-10-20 06:57] LABS: Mean Corpuscular Volume 64.3 fL (80.0-100.0)
[2021-10-20] MEDS: CEFEPIME 2 GM in SODIUM CHL 0.9% 50 ML IV SCH ×2 (07:48→16:30)
[2021-10-20] MEDS: DexAMETHasone SOD PHOS 10MG/1ML VIAL INJ IV SCH (09:38)
[2021-10-20] MEDS: FAMOTIDINE (10MG/ML) 2ML VL IV SCH ×2 (09:38→21:49)
[2021-10-20] MEDS: ARIPIPRAZOLE 5 MG PO SCH (09:38)
[2021-10-20] MEDS: SODIUM CHLOR 0.9% PF (SALINE LOCK) 10ML VIAL/SYR IV SCH ×2 (09:38→21:50)
[2021-10-20] MEDS: FUROSEMIDE 20 MG/2 ML VIAL IV SCH (09:38)
[2021-10-20] MEDS: ZINC SULFATE 220mg CAP or TAB PO SCH (09:39)
[2021-10-20] MEDS: ASCORBIC ACID 1,000 MG TAB PO SCH (09:39)
[2021-10-20] MEDS: CHOLECALCIFEROL (VITD3) 2,000 UNIT CAP/TAB PO SCH (09:39)
[2021-10-20] MEDS: Escitalopram Oxalate 10 MG TABLET PO SCH (09:39)
[2021-10-20] MEDS: BENZTROPINE MESY 0.5 MG TAB PO SCH (09:39)
[2021-10-20] MEDS: ENOXAPARIN SOD 40 MG/0.4 ML SYRINGE SC SCH ×2 (09:40→22:24)
[2021-10-20] MEDS ORDERED: SODIUM CHLORIDE 0.9% 500 ML IV ONE (11:30)
[2021-10-20] MEDS: PROPOFOL 100 ML IV SCH (14:15)
[2021-10-20] MEDS: fentaNYL Drip 2500mCg/250mlNS 250 ML IV SCH (14:15)
[2021-10-20] MEDS: MIDAZOLAM DRIP 50 mg/50mL 50 ML IV SCH (14:15)
[2021-10-20] MEDS: NOREPINEPHRINE 8 MG/250ML KIT 250 ML IV SCH (14:15)
[2021-10-20] MEDS ORDERED: ACETAMINOPHEN 650 MG RECT SUPP PR PRN (17:30)
[2021-10-21] VITALS (24 sets, daily range): BP systolic 108–128; BP diastolic 73–89
[2021-10-21] MEDS: ALBUTEROL SULF 2.5 MG/0.5ML(0.5%) NEB SOLN NEB SCH ×4 (02:24→18:45)
[2021-10-21] MEDS: BUDESONIDE (INHALATION) 0.5 MG/2 ML NEB NEB SCH ×3 (02:24→18:45)
[2021-10-21] MEDS: IPRATROPIUM BROM 0.5 MG/2.5ML INH SOL NEB SCH ×4 (02:24→18:45)
[2021-10-21] MEDS: InsuLIN REG 1unit/0.01ml Soln (100units/ml) SC SCH ×4 (06:49→21:53)
[2021-10-21] MEDS: ACCU-CHEK COMFORT CURVE STRIP VI SCH ×4 (06:49→21:22)
[2021-10-21 06:56] LABS: Eosinophils # (auto) 0 10 ^3/uL (0-0.8); Eosinophils % (auto) 0.1 % (0.0-7.0); Mean Corpuscular Volume 65.8 fL (80.0-100.0)
[2021-10-21 06:59] LABS: Basophils # (auto) 0.2 10 ^3/uL (0-0.2); Basophils % (auto) 0.7 % (0.0-2.0); Hemoglobin 13.2 g/dL (13.5-17.5); Lymphocytes # (auto) 0.5 10 ^3/uL (0.4-5.4); Lymphocytes % (auto) 2.1 % (10.0-50.0); Mean Corpuscular Hemoglobin 20.6 pg (28.0-32.0); Mean Corpuscular Hgb Conc. 31.3 g/dL (32.0-36.0); Monocytes # (auto) 1.2 10 ^3/uL (0-1.3); Monocytes % (auto) 5.2 % (0.0-12.0); Neutrophils # (auto) 21.8 10 ^3/uL (1.6-8.6); Neutrophils % (auto) 91.9 % (37.0-80.0); Red Blood Cells 6.39 10^6/uL (4.5-5.90); Red Cell Distribution Width 15.9 % (11.8-14.3); White Blood Cell 23.8 10^3/uL (4.4-10.8)
[2021-10-21 07:15] LABS: Potassium 5.4 mmol/L (3.5-5.1)
[2021-10-21 07:20] LABS: Albumin 2.2 g/dL (3.4-5.0); BUN/Creatinine Ratio 53.2; Calcium 8.4 mg/dL (8.5-10.1)
[2021-10-21 07:22] LABS: Bilirubin, Total 1.8 mg/dL (0.2-1.0); Total Protein 7.8 g/dL (6.4-8.2)
[2021-10-21] MEDS: CEFEPIME 2 GM in SODIUM CHL 0.9% 50 ML IV SCH ×3 (08:35)
[2021-10-21] MEDS: ENOXAPARIN SOD 40 MG/0.4 ML SYRINGE SC SCH ×2 (09:44→21:22)
[2021-10-21] MEDS: CHOLECALCIFEROL (VITD3) 2,000 UNIT CAP/TAB PO SCH (09:44)
[2021-10-21] MEDS: ASCORBIC ACID 1,000 MG TAB PO SCH (09:45)
[2021-10-21] MEDS: DexAMETHasone SOD PHOS 10MG/1ML VIAL INJ IV SCH (09:45)
[2021-10-21] MEDS: FAMOTIDINE (10MG/ML) 2ML VL IV SCH ×2 (09:45→21:21)
[2021-10-21] MEDS: ZINC SULFATE 220mg CAP or TAB PO SCH (09:45)
[2021-10-21] MEDS: BENZTROPINE MESY 0.5 MG TAB PO SCH (10:00)
[2021-10-21] MEDS: ARIPIPRAZOLE 5 MG PO SCH (10:00)
[2021-10-21] MEDS: SODIUM CHLOR 0.9% PF (SALINE LOCK) 10ML VIAL/SYR IV SCH ×2 (10:00→21:21)
[2021-10-21] MEDS: Escitalopram Oxalate 10 MG TABLET PO SCH (10:00)
[2021-10-21] MEDS ORDERED: D5W 5% 1,000 ML IV SCH (10:30)
[2021-10-21] MEDS: D5W 5% 1,000 ML IV SCH ×2 (12:32→20:55)
[2021-10-21] MEDS ORDERED: IOHEXOL 350 MG/ML 100ML IJ ONE (13:32)
[2021-10-21] MEDS: NOREPINEPHRINE 8 MG/250ML KIT 250 ML IV SCH (14:15)
[2021-10-21] MEDS: MEROPENEM 1GM IVPB 100 ML IV SCH ×2 (14:49→21:20)
[2021-10-21] MEDS: LINEZOLID 600MG/300ML 300 ML IV SCH (21:21)
[2021-10-22] VITALS (14 sets, daily range): BP systolic 107–133; BP diastolic 64–89
[2021-10-22] MEDS: IPRATROPIUM BROM 0.5 MG/2.5ML INH SOL NEB SCH ×5 (00:04→23:52)
[2021-10-22] MEDS: ALBUTEROL SULF 2.5 MG/0.5ML(0.5%) NEB SOLN NEB SCH ×5 (00:05→23:52)
[2021-10-22] MEDS: D5W 5% 1,000 ML IV SCH ×3 (04:30→20:15)
[2021-10-22 06:00] LABS: Basophils # (auto) 0.2 10 ^3/uL (0-0.2); Eosinophils # (auto) 0 10 ^3/uL (0-0.8)
[2021-10-22] MEDS: BUDESONIDE (INHALATION) 0.5 MG/2 ML NEB NEB SCH ×2 (06:02→19:00)
[2021-10-22 06:05] LABS: Hematocrit 40.6 % (41.0-53.0); Hemoglobin 12.6 g/dL (13.5-17.5); Mean Corpuscular Hemoglobin 20.4 pg (28.0-32.0); Mean Corpuscular Hgb Conc. 31.1 g/dL (32.0-36.0); Mean Corpuscular Volume 65.5 fL (80.0-100.0); Monocytes # (auto) 1.6 10 ^3/uL (0-1.3); Monocytes % (auto) 8.4 % (0.0-12.0); Neutrophils # (auto) 16.6 10 ^3/uL (1.6-8.6); Neutrophils % (auto) 85.6 % (37.0-80.0); Red Cell Distribution Width 15.3 % (11.8-14.3); White Blood Cell 19.4 10^3/uL (4.4-10.8)
[2021-10-22] MEDS: MEROPENEM 1GM IVPB 100 ML IV SCH ×3 (06:11→22:34)
[2021-10-22 06:23] LABS: Albumin 2.1 g/dL (3.4-5.0); Calcium 8.4 mg/dL (8.5-10.1); Potassium 5.1 mmol/L (3.5-5.1)
[2021-10-22 06:26] LABS: BUN/Creatinine Ratio 52.4; Bilirubin, Total 1.4 mg/dL (0.2-1.0); Total Protein 7.5 g/dL (6.4-8.2)
[2021-10-22] MEDS: InsuLIN REG 1unit/0.01ml Soln (100units/ml) SC SCH ×4 (06:56→22:00)
[2021-10-22] MEDS: ACCU-CHEK COMFORT CURVE STRIP VI SCH ×4 (06:57→22:00)
[2021-10-22] MEDS: BENZTROPINE MESY 0.5 MG TAB PO SCH (09:30)
[2021-10-22] MEDS: ARIPIPRAZOLE 5 MG PO SCH (09:30)
[2021-10-22] MEDS: Escitalopram Oxalate 10 MG TABLET PO SCH (09:30)
[2021-10-22] MEDS: LINEZOLID 600MG/300ML 300 ML IV SCH ×2 (09:39→22:34)
[2021-10-22] MEDS: ENOXAPARIN SOD 40 MG/0.4 ML SYRINGE SC SCH ×2 (09:39→22:35)
[2021-10-22] MEDS: CHOLECALCIFEROL (VITD3) 2,000 UNIT CAP/TAB PO SCH (09:40)
[2021-10-22] MEDS: FAMOTIDINE (10MG/ML) 2ML VL IV SCH ×2 (09:40→22:34)
[2021-10-22] MEDS: ZINC SULFATE 220mg CAP or TAB PO SCH (09:40)
[2021-10-22] MEDS: SODIUM CHLOR 0.9% PF (SALINE LOCK) 10ML VIAL/SYR IV SCH ×2 (09:40→22:00)
[2021-10-22] MEDS: ASCORBIC ACID 1,000 MG TAB PO SCH (09:40)
[2021-10-23 05:00] VITALS: BP 118/73
[2021-10-23] MEDS: ALBUTEROL SULF 2.5 MG/0.5ML(0.5%) NEB SOLN NEB SCH ×3 (06:13→18:49)
[2021-10-23] MEDS: IPRATROPIUM BROM 0.5 MG/2.5ML INH SOL NEB SCH ×3 (06:13→18:49)
[2021-10-23] MEDS: BUDESONIDE (INHALATION) 0.5 MG/2 ML NEB NEB SCH ×2 (06:13→18:50)
[2021-10-23] MEDS: ACCU-CHEK COMFORT CURVE STRIP VI SCH ×4 (06:22→20:58)
[2021-10-23] MEDS: MEROPENEM 1GM IVPB 100 ML IV SCH ×3 (06:22→20:57)
[2021-10-23] MEDS: InsuLIN REG 1unit/0.01ml Soln (100units/ml) SC SCH ×4 (06:22→20:58)
[2021-10-23] MEDS: D5W 5% 1,000 ML IV SCH (06:22)
[2021-10-23 07:37] LABS: Eosinophils # (auto) 0.1 10 ^3/uL (0-0.8); Hemoglobin 11.8 g/dL (13.5-17.5); Nucleated Red Blood Cells % 0.1 %
[2021-10-23 07:39] LABS: Basophils # (auto) 0 10 ^3/uL (0-0.2); Basophils % (auto) 0.2 % (0.0-2.0); Eosinophils % (auto) 0.6 % (0.0-7.0); Hematocrit 36.2 % (41.0-53.0); Lymphocytes # (auto) 1.5 10 ^3/uL (0.4-5.4); Lymphocytes % (auto) 10.3 % (10.0-50.0); Mean Corpuscular Hgb Conc. 32.5 g/dL (32.0-36.0); Monocytes # (auto) 1.2 10 ^3/uL (0-1.3); Monocytes % (auto) 8.6 % (0.0-12.0); Neutrophils # (auto) 11.4 10 ^3/uL (1.6-8.6); Neutrophils % (auto) 80.3 % (37.0-80.0); Red Blood Cells 5.64 10^6/uL (4.5-5.90); Red Cell Distribution Width 15.9 % (11.8-14.3); White Blood Cell 14.1 10^3/uL (4.4-10.8)
[2021-10-23 07:46] LABS: Mean Corpuscular Hemoglobin 20.9 pg (28.0-32.0); Mean Corpuscular Volume 64.2 fL (80.0-100.0)
[2021-10-23 07:50] LABS: Potassium 4.2 mmol/L (3.5-5.1)
[2021-10-23 08:00] LABS: Calcium 8.1 mg/dL (8.5-10.1)
[2021-10-23 09:00] VITALS: BP 118/78
[2021-10-23] MEDS: SODIUM CHLOR 0.9% PF (SALINE LOCK) 10ML VIAL/SYR IV SCH ×2 (09:54→20:58)
[2021-10-23] MEDS: FAMOTIDINE (10MG/ML) 2ML VL IV SCH ×2 (09:54→20:58)
[2021-10-23] MEDS: ZINC SULFATE 220mg CAP or TAB PO SCH (09:55)
[2021-10-23] MEDS: ENOXAPARIN SOD 40 MG/0.4 ML SYRINGE SC SCH ×2 (09:55→20:58)
[2021-10-23] MEDS: CHOLECALCIFEROL (VITD3) 2,000 UNIT CAP/TAB PO SCH (09:55)
[2021-10-23] MEDS: Escitalopram Oxalate 10 MG TABLET PO SCH (09:55)
[2021-10-23] MEDS: ASCORBIC ACID 1,000 MG TAB PO SCH (09:55)
[2021-10-23] MEDS: LINEZOLID 600MG/300ML 300 ML IV SCH ×2 (09:55→20:58)
[2021-10-23] MEDS: ARIPIPRAZOLE 5 MG PO SCH (09:56)
[2021-10-23] MEDS: BENZTROPINE MESY 0.5 MG TAB PO SCH (11:44)
[2021-10-23 12:34] VITALS: BP 125/85
[2021-10-23 16:43] VITALS: BP 127/81
[2021-10-23 22:00] VITALS: BP 121/70
[2021-10-24] MEDS: ALBUTEROL SULF 2.5 MG/0.5ML(0.5%) NEB SOLN NEB SCH ×5 (00:12→23:44)
[2021-10-24] MEDS: IPRATROPIUM BROM 0.5 MG/2.5ML INH SOL NEB SCH ×5 (00:12→23:44)
[2021-10-24 04:54] VITALS: BP 119/82
[2021-10-24] MEDS: ACCU-CHEK COMFORT CURVE STRIP VI SCH ×2 (05:17→11:50)
[2021-10-24] MEDS: InsuLIN REG 1unit/0.01ml Soln (100units/ml) SC SCH ×2 (05:17→11:30)
[2021-10-24] MEDS: MEROPENEM 1GM IVPB 100 ML IV SCH ×3 (05:18→21:11)
[2021-10-24 09:00] VITALS: BP 131/83
[2021-10-24] MEDS: BUDESONIDE (INHALATION) 0.5 MG/2 ML NEB NEB SCH ×2 (09:20→18:41)
[2021-10-24] MEDS: SODIUM CHLOR 0.9% PF (SALINE LOCK) 10ML VIAL/SYR IV SCH ×2 (09:58→21:11)
[2021-10-24] MEDS: FAMOTIDINE (10MG/ML) 2ML VL IV SCH (09:58)
[2021-10-24] MEDS: ASCORBIC ACID 1,000 MG TAB PO SCH (09:59)
[2021-10-24] MEDS: ZINC SULFATE 220mg CAP or TAB PO SCH (09:59)
[2021-10-24] MEDS: BENZTROPINE MESY 0.5 MG TAB PO SCH (09:59)
[2021-10-24] MEDS: LINEZOLID 600MG/300ML 300 ML IV SCH ×2 (09:59→21:12)
[2021-10-24] MEDS: ARIPIPRAZOLE 5 MG PO SCH (10:00)
[2021-10-24] MEDS: Escitalopram Oxalate 10 MG TABLET PO SCH (10:00)
[2021-10-24] MEDS: ENOXAPARIN SOD 40 MG/0.4 ML SYRINGE SC SCH ×2 (10:00→21:12)
[2021-10-24] MEDS: CHOLECALCIFEROL (VITD3) 2,000 UNIT CAP/TAB PO SCH (10:00)
[2021-10-24 12:30] VITALS: BP 114/73
[2021-10-24 17:00] VITALS: BP 128/81
[2021-10-24 22:16] VITALS: BP 117/68
[2021-10-25 05:06] VITALS: BP 116/74
[2021-10-25] MEDS: BUDESONIDE (INHALATION) 0.5 MG/2 ML NEB NEB SCH (05:52)
[2021-10-25] MEDS: ALBUTEROL SULF 2.5 MG/0.5ML(0.5%) NEB SOLN NEB SCH ×2 (05:52→11:05)
[2021-10-25] MEDS: IPRATROPIUM BROM 0.5 MG/2.5ML INH SOL NEB SCH ×2 (05:52→11:05)
[2021-10-25] MEDS: MEROPENEM 1GM IVPB 100 ML IV SCH (06:22)
[2021-10-25 07:08] LABS: Basophils # (auto) 0.1 10 ^3/uL (0-0.2); Basophils % (auto) 0.5 % (0.0-2.0); Eosinophils # (auto) 0.2 10 ^3/uL (0-0.8); Monocytes # (auto) 1.4 10 ^3/uL (0-1.3); Nucleated Red Blood Cells % 0.1 %
[2021-10-25 07:10] LABS: Eosinophils % (auto) 1.2 % (0.0-7.0); Hematocrit 39.5 % (41.0-53.0); Hemoglobin 12.7 g/dL (13.5-17.5); Lymphocytes # (auto) 1.7 10 ^3/uL (0.4-5.4); Lymphocytes % (auto) 11.5 % (10.0-50.0); Mean Corpuscular Hgb Conc. 32.1 g/dL (32.0-36.0); Monocytes % (auto) 9.7 % (0.0-12.0); Neutrophils # (auto) 11.4 10 ^3/uL (1.6-8.6); Neutrophils % (auto) 77.1 % (37.0-80.0); Red Cell Distribution Width 15.7 % (11.8-14.3); White Blood Cell 14.7 10^3/uL (4.4-10.8)
[2021-10-25 07:16] LABS: Mean Corpuscular Hemoglobin 20.8 pg (28.0-32.0); Mean Corpuscular Volume 64.8 fL (80.0-100.0)
[2021-10-25 07:26] LABS: Albumin 2.1 g/dL (3.4-5.0); Potassium 4.5 mmol/L (3.5-5.1)
[2021-10-25 07:31] LABS: BUN/Creatinine Ratio 26.1; Bilirubin, Total 1.1 mg/dL (0.2-1.0)
[2021-10-25 09:00] VITALS: BP 125/80
[2021-10-25] MEDS: Escitalopram Oxalate 10 MG TABLET PO SCH (10:00)
[2021-10-25] MEDS: ARIPIPRAZOLE 5 MG PO SCH (10:00)
[2021-10-25] MEDS ORDERED: DOXYCYCLINE 100 MG TAB/CAP PO SCH (10:00)
[2021-10-25] MEDS: ZINC SULFATE 220mg CAP or TAB PO SCH (10:30)
[2021-10-25] MEDS: ASCORBIC ACID 1,000 MG TAB PO SCH (10:35)
[2021-10-25] MEDS: SODIUM CHLOR 0.9% PF (SALINE LOCK) 10ML VIAL/SYR IV SCH (10:35)
[2021-10-25] MEDS: CHOLECALCIFEROL (VITD3) 2,000 UNIT CAP/TAB PO SCH (11:17)
[2021-10-25] MEDS: ENOXAPARIN SOD 40 MG/0.4 ML SYRINGE SC SCH (11:17)
[2021-10-25] MEDS: BENZTROPINE MESY 0.5 MG TAB PO SCH (11:17)
[2021-10-25] MEDS ORDERED: ALBUAER3 IN (11:40)
[2021-10-25] MEDS ORDERED: ZINC220T6 PO (11:40)
[2021-10-25] MEDS ORDERED: CHOL1CAP47 PO (11:40)
[2021-10-25] MEDS ORDERED: RIVA10TA PO (11:40)
[2021-10-25] MEDS ORDERED: DOX100T PO (11:41)
[2021-10-25 13:08] VITALS: BP 118/81
== END 2021-10-25 14:57 | disposition home health service (06) | DRG 870 ==
LOC: EDBD 05:23 → ER 05:23 → TELE 14:09 → TELE-E-ADS 23:08 → DOU IN ICU 10-14 14:49 → TELE-EAST 10-22 13:45
PROVIDERS: ADMIT Hospitalist; ATTEND Internal Medicine
PROC: XW033E5 Introduction of Remdesivir Anti-infective into Peripheral Vein, Percutaneous Approach, New Technology Group 5 (ICD-10-PCS; 2021-10-12)
PROC: 5A0935A Assistance with Respiratory Ventilation, Less than 24 Consecutive Hours, High Flow/Velocity Cannula (ICD-10-PCS; 2021-10-13)
PROC: 5A09357 Assistance with Respiratory Ventilation, Less than 24 Consecutive Hours, Continuous Positive Airway Pressure (ICD-10-PCS; 2021-10-14)
PROC: 5A1955Z Respiratory Ventilation, Greater than 96 Consecutive Hours (ICD-10-PCS; principal; 2021-10-15)
PROC: 0BH17EZ Insertion of Endotracheal Airway into Trachea, Via Natural or Artificial Opening (ICD-10-PCS; 2021-10-15)
PROC: 02HV33Z Insertion of Infusion Device into Superior Vena Cava, Percutaneous Approach (ICD-10-PCS; 2021-10-15)
DX: A41.89 Other specified sepsis (principal); U07.1 COVID-19; J96.01 Acute respiratory failure with hypoxia; N17.0 Acute kidney failure with tubular necrosis; E43 Unspecified severe protein-calorie malnutrition; J12.82 Pneumonia due to coronavirus disease 2019; I21.A1 Myocardial infarction type 2; E87.0 Hyperosmolality and hypernatremia; D89.839 Cytokine release syndrome, grade unspecified; E66.01 Morbid (severe) obesity due to excess calories; F32.9 Major depressive disorder, single episode, unspecified; N18.31 Chronic kidney disease, stage 3a; D64.9 Anemia, unspecified; E78.5 Hyperlipidemia, unspecified; E83.39 Other disorders of phosphorus metabolism; E87.6 Hypokalemia; R73.03 Prediabetes; F17.210 Nicotine dependence, cigarettes, uncomplicated; E87.5 Hyperkalemia; R91.1 Solitary pulmonary nodule; Z68.30 Body mass index [BMI] 30.0-30.9, adult
CPT/HCPCS: 36415; 36569; 36600; 70450; 71045; 71275; 80048; 80053; 80061; 80307; 81001; 82040; 82306; 82728; 82805; 82962; 83036; 83540; 83550; 83605; 83615; 83735; 83880; 84100; 84443; 84484; 84550; 85007; 85025; 85027; 85379; 85610; 85730; 86141; 87040; 87070; 87081; 87086; 87205; 87426; 87804; 87880; 92610; 93005; 93970; 94003; 94640; 94660; 94667; 94668; 96365; 96366; 96368; 96375; 97116; 97162; 97163; 97530; G0378; J0330; J0696; J1100; J1815; J2185; J2250; J2405; J2704; J3490; J7060